=== PATIENT | female | born 1930 | race Caucasian/White ===

== ENCOUNTER 2017-12-22 15:38 | Emergency (ER) | payer MEDICARE, BC | END 2017-12-22 17:46 | disposition home or self-care (01) | LOC: ERS 15:38 | DX: L25.9 Unspecified contact dermatitis, unspecified cause (principal); M19.90 Unspecified osteoarthritis, unspecified site; F03.90 Unspecified dementia, unspecified severity, without behavioral disturbance, psychotic disturbance, mood disturbance, and anxiety; Z86.711 Personal history of pulmonary embolism; Z79.899 Other long term (current) drug therapy | CPT/HCPCS: 99284 ==

== ENCOUNTER 2018-05-05 17:31 | Emergency (ER) | payer MEDICARE, BC | END 2018-05-05 20:05 | disposition home or self-care (01) | LOC: ERS 17:31 | DX: S70.11XA Contusion of right thigh, initial encounter (principal); M19.90 Unspecified osteoarthritis, unspecified site; I10 Essential (primary) hypertension; F03.90 Unspecified dementia, unspecified severity, without behavioral disturbance, psychotic disturbance, mood disturbance, and anxiety; Z86.711 Personal history of pulmonary embolism; W19.XXXA Unspecified fall, initial encounter | CPT/HCPCS: 99284 ==